=== PATIENT | female | born 1985 | race African-American/Black ===

== ENCOUNTER 2018-02-22 10:18 | Inpatient (IN) | payer MEDICARE, OTHER ==
[2018-02-22] MEDS: morphine 4 MG/ML VIAL IV (11:00)
[2018-02-22 11:03] LABS: ADD MAN DIFF? NO
[2018-02-22 11:06] LABS: WHITE BLOOD COUNT 5.6 10^3/ul (4.8-10.8)
[2018-02-22 11:06] LABS: ABNORMAL IP MESSAGE 1; BASOPHILS % 0.2 % (0.0-2.0); EOSINOPHILS % 0.7 % (0.0-7.0); HEMATOCRIT 34.5 % (37.0-47.0); HEMOGLOBIN 9.8 g/dl (12.0-16.0); LYMPHOCYTES # 1.3 10^3/ul (0.8-2.9); LYMPHOCYTES % 23.2 % (15.0-51.0); MEAN CORPUSCULAR HEMOGLOBIN 20.8 pg (29.0-33.0); MEAN CORPUSCULAR HGB CONC 28.4 g/dl (32.0-37.0); MEAN CORPUSCULAR VOLUME 73.2 fl (82.0-101.0); MEAN PLATELET VOLUME 11.5 fl (7.4-10.4); MONOCYTE # 0.6 10^3/ul (0.3-0.9); MONOCYTES % 10.5 % (0.0-11.0); NEUTROPHIL # 3.6 10^3/ul (1.6-7.5); NEUTROPHILS % 64.9 % (39.0-77.0); PLATELET COUNT 274 10^3/UL (140-415); RED BLOOD COUNT 4.71 10^6/ul (4.20-5.40); RED CELL DISTRIBUTION WIDTH 18.5 % (11.5-14.5)
[2018-02-22 11:12] LABS: POSITIVE DIFF @See below
[2018-02-22 11:28] LABS: ANION GAP 9 (5-13); BLOOD UREA NITROGEN 12 mg/dl (7-20); CALCIUM 7.4 mg/dl (8.4-10.2); CARBON DIOXIDE 26 mmol/L (21-31); CHLORIDE 101 mmol/L (97-110); CREATININE 0.65 mg/dl (0.44-1.00); Estimated GFR > 60 mL/min (>60); GLUCOSE 204 mg/dl (70-220); POTASSIUM 3.8 mmol/L (3.5-5.1); SODIUM 136 mmol/L (135-144)
[2018-02-22 11:40] LABS: TROPONIN-I < 0.012 ng/ml (0.000-0.120)
[2018-02-22] MEDS: ACETAMINOPHEN 500 MG TAB PO (12:00)
[2018-02-22] MEDS: LORAZEPAM 0.5 MG TAB PO (12:00)
[2018-02-22] MEDS ORDERED: NACL 0.9% 3 ML SYG IV (12:30)
[2018-02-22] MEDS ORDERED: ONDANSETRON 4 MG INJ IV (12:30)
[2018-02-22] MEDS ORDERED: GLUCAGON 1 MG INJ IM (12:30)
[2018-02-22] MEDS ORDERED: DEXTROSE 50% 50 ML SYRINGE IV ×2 (12:30)
[2018-02-22] MEDS ORDERED: GLUCOSE GEL 15 GRAM TUBE BUCCAL (12:30)
[2018-02-22] MEDS ORDERED: ACETAMINOPHEN 325 MG TAB PO (12:30)
[2018-02-22] MEDS ORDERED: GLUCOSE GEL 15 GRAM TUBE PO ×2 (12:30)
[2018-02-22] MEDS: morphine 2 MG INJ IV ×3 (13:34→23:11)
[2018-02-22] MEDS ORDERED: HEPARIN 5,000 UNIT/0.5 ML VIAL ×2 (14:00→22:22)
[2018-02-22] MEDS: GABAPENTIN 100 MG CAP PO ×2 (14:05→20:51)
[2018-02-22] MEDS: SUCRALFATE (100 MG/ML) 10ML CUP PO ×3 (14:05→20:51)
[2018-02-22] MEDS: SOD CHLORIDE 0.9% 1,000 ML IV (14:05)
[2018-02-22] MEDS: ASPIRIN 325 MG TAB PO (14:05)
[2018-02-22] MEDS: HEPARIN 5,000 UNIT/1 ML VIAL SC ×2 (14:08→23:24)
[2018-02-22 17:20] LABS: CREATINE KINASE 137 IU/L (23-200)
[2018-02-22] MEDS: HYDROCODONE/APAP (5/325) TAB PO (17:25)
[2018-02-22 17:33] LABS: CK INDEX 0.2; CK-MB 0.25 ng/ml (0.0-2.4); TROPONIN-I < 0.012 ng/ml (0.000-0.120)
[2018-02-22] MEDS: INSULIN ASPART [NOVOLOG] 3 ML PEN SC ×3 (17:55→20:54)
[2018-02-22] MEDS: INSULIN GLARGINE [LANTus] (100 UNITS/ML) SYG SC (20:49)
[2018-02-22] MEDS: ATORVASTATIN 80 MG TAB PO (20:51)
[2018-02-22] MEDS: QUETIAPINE 100 MG TAB PO (20:51)
[2018-02-22] MEDS: traZODone 50 MG TAB PO (20:51)
[2018-02-22 22:52] LABS: CREATINE KINASE 134 IU/L (23-200)
[2018-02-22 23:02] LABS: CK INDEX 0.2; CK-MB 0.24 ng/ml (0.0-2.4)
[2018-02-22 23:06] LABS: TROPONIN-I < 0.012 ng/ml (0.000-0.120)
[2018-02-22] MEDS: HALOPERIDOL 5 MG TAB PO (23:20)
[2018-02-22] MEDS: FAMOTIDINE 20 MG INJ IV (23:20)
[2018-02-23] MEDS: ACCU-CHEK XX (02:00)
[2018-02-23] MEDS: morphine 2 MG INJ IV ×2 (03:29→07:42)
[2018-02-23 05:46] LABS: ADD MAN DIFF? NO
[2018-02-23 06:21] LABS: ALANINE AMINOTRANSFERASE 27 IU/L (13-69); ALBUMIN 3.5 g/dl (3.3-4.9); ALBUMIN/GLOBULIN RATIO 1.29; ALKALINE PHOSPHATASE 121 IU/L (42-121); ANION GAP 10 (5-13); ASPARTATE AMINO TRANSFERASE 19 IU/L (15-46); BLOOD UREA NITROGEN 13 mg/dl (7-20); CALCIUM 6.7 mg/dl (8.4-10.2); CARBON DIOXIDE 25 mmol/L (21-31); CHLORIDE 103 mmol/L (97-110); CREATININE 0.65 mg/dl (0.44-1.00); Estimated GFR > 60 mL/min (>60); GLUCOSE 98 mg/dl (70-220); MAGNESIUM 1.6 mg/dl (1.7-2.5); SODIUM 138 mmol/L (135-144); TOTAL PROTEIN 6.2 g/dl (6.1-8.1)
[2018-02-23 06:46] LABS: HEMOGLOBIN A1C 7.6 % (0-5.9)
[2018-02-23 07:02] LABS: WHITE BLOOD COUNT 4.7 10^3/ul (4.8-10.8)
[2018-02-23 07:02] LABS: ABNORMAL IP MESSAGE 1; BASOPHILS % 0.4 % (0.0-2.0); EOSINOPHILS # 0.1 10^3/ul (0.0-0.5); EOSINOPHILS % 1.1 % (0.0-7.0); HEMATOCRIT 30.8 % (37.0-47.0); HEMOGLOBIN 9.1 g/dl (12.0-16.0); LYMPHOCYTES # 1.6 10^3/ul (0.8-2.9); LYMPHOCYTES % 33.3 % (15.0-51.0); MEAN CORPUSCULAR HGB CONC 29.5 g/dl (32.0-37.0); MEAN CORPUSCULAR VOLUME 71.1 fl (82.0-101.0); MONOCYTE # 0.8 10^3/ul (0.3-0.9); NEUTROPHIL # 2.3 10^3/ul (1.6-7.5); NEUTROPHILS % 48.8 % (39.0-77.0); PLATELET COUNT 187 10^3/UL (140-415); RED BLOOD COUNT 4.33 10^6/ul (4.20-5.40); RED CELL DISTRIBUTION WIDTH 18.9 % (11.5-14.5)
[2018-02-23 07:04] LABS: POSITIVE DIFF @See below
[2018-02-23] MEDS ORDERED: HEPARIN 5,000 UNIT/0.5 ML VIAL ×3 (07:33→21:39)
[2018-02-23] MEDS: HEPARIN 5,000 UNIT/1 ML VIAL SC ×3 (07:36→21:57)
[2018-02-23] MEDS: INSULIN ASPART [NOVOLOG] 3 ML PEN SC ×7 (07:41→21:00)
[2018-02-23] MEDS: FAMOTIDINE 20 MG INJ IV ×2 (08:04→21:00)
[2018-02-23] MEDS: SUCRALFATE (100 MG/ML) 10ML CUP PO ×4 (08:04→21:00)
[2018-02-23] MEDS: GABAPENTIN 100 MG CAP PO ×3 (08:04→21:55)
[2018-02-23] MEDS: ASPIRIN 81 MG TAB PO (08:05)
[2018-02-23] MEDS: DIPHENHYDRAMINE 50 MG INJ IV ×2 (09:23→10:30)
[2018-02-23] MEDS: MAGNESIUM OXIDE 400 MG TAB PO (09:23)
[2018-02-23] MEDS: HYDROmorphONE 0.5 MG/0.5 ML SYG IV ×3 (10:57→19:07)
[2018-02-23] MEDS: POLYETHYLENE GLYCOL 17 GM PACKET PO (11:00)
[2018-02-23] MEDS: traZODone 50 MG TAB PO (21:54)
[2018-02-23] MEDS: QUETIAPINE 100 MG TAB PO (21:55)
[2018-02-23] MEDS: HALOPERIDOL 5 MG TAB PO (21:55)
[2018-02-23] MEDS: ATORVASTATIN 80 MG TAB PO (21:55)
[2018-02-23] MEDS: INSULIN GLARGINE [LANTus] (100 UNITS/ML) SYG SC (22:00)
[2018-02-24] MEDS: HYDROmorphONE 0.5 MG/0.5 ML SYG IV ×6 (00:05→22:40)
[2018-02-24] MEDS: ACCU-CHEK XX (02:42)
[2018-02-24] MEDS ORDERED: HEPARIN 5,000 UNIT/0.5 ML VIAL ×3 (05:50→21:16)
[2018-02-24] MEDS: HEPARIN 5,000 UNIT/1 ML VIAL SC ×3 (05:55→22:47)
[2018-02-24 06:08] LABS: ADD MAN DIFF? NO
[2018-02-24 06:09] LABS: WHITE BLOOD COUNT 5.1 10^3/ul (4.8-10.8)
[2018-02-24 06:09] LABS: ABNORMAL IP MESSAGE 1; BASOPHILS % 0.4 % (0.0-2.0); EOSINOPHILS # 0.1 10^3/ul (0.0-0.5); HEMATOCRIT 31.6 % (37.0-47.0); HEMOGLOBIN 9.4 g/dl (12.0-16.0); LYMPHOCYTES # 1.3 10^3/ul (0.8-2.9); MEAN CORPUSCULAR HEMOGLOBIN 20.9 pg (29.0-33.0); MEAN CORPUSCULAR HGB CONC 29.7 g/dl (32.0-37.0); MEAN CORPUSCULAR VOLUME 70.4 fl (82.0-101.0); MEAN PLATELET VOLUME 10.8 fl (7.4-10.4); MONOCYTE # 0.8 10^3/ul (0.3-0.9); MONOCYTES % 16.2 % (0.0-11.0); NEUTROPHIL # 2.9 10^3/ul (1.6-7.5); NEUTROPHILS % 56.2 % (39.0-77.0); PLATELET COUNT 223 10^3/UL (140-415); RED BLOOD COUNT 4.49 10^6/ul (4.20-5.40); RED CELL DISTRIBUTION WIDTH 18.6 % (11.5-14.5)
[2018-02-24 06:13] LABS: POSITIVE DIFF @See below
[2018-02-24 06:37] LABS: ALBUMIN 3.6 g/dl (3.3-4.9); ANION GAP 7 (5-13); BLOOD UREA NITROGEN 13 mg/dl (7-20); CARBON DIOXIDE 26 mmol/L (21-31); CHLORIDE 104 mmol/L (97-110); CREATININE 0.61 mg/dl (0.44-1.00); GLUCOSE 109 mg/dl (70-220); MAGNESIUM 1.8 mg/dl (1.7-2.5); PHOSPHORUS 5.7 mg/dl (2.5-4.9); POTASSIUM 4.1 mmol/L (3.5-5.1); SODIUM 137 mmol/L (135-144)
[2018-02-24] MEDS: INSULIN ASPART [NOVOLOG] 3 ML PEN SC ×7 (08:00→20:48)
[2018-02-24] MEDS: ASPIRIN 81 MG TAB PO (08:30)
[2018-02-24] MEDS: GABAPENTIN 100 MG CAP PO ×2 (08:30→12:32)
[2018-02-24] MEDS: POLYETHYLENE GLYCOL 17 GM PACKET PO (08:31)
[2018-02-24] MEDS: SUCRALFATE (100 MG/ML) 10ML CUP PO ×4 (08:31→20:42)
[2018-02-24] MEDS: FAMOTIDINE 20 MG INJ IV ×2 (08:31→20:42)
[2018-02-24] MEDS: HYDROCODONE/APAP (5/325) TAB PO (13:17)
[2018-02-24] MEDS: ATORVASTATIN 80 MG TAB PO (20:42)
[2018-02-24] MEDS: GABAPENTIN 300 MG CAP PO (20:43)
[2018-02-24] MEDS: HALOPERIDOL 5 MG TAB PO (20:43)
[2018-02-24] MEDS: traZODone 50 MG TAB PO (20:43)
[2018-02-24] MEDS: DIPHENHYDRAMINE 50 MG INJ IV (20:43)
[2018-02-24] MEDS: QUETIAPINE 100 MG TAB PO (20:43)
[2018-02-24] MEDS: INSULIN GLARGINE [LANTus] (100 UNITS/ML) SYG SC (20:51)
[2018-02-25] MEDS: ACCU-CHEK XX (02:43)
[2018-02-25] MEDS: HYDROmorphONE 0.5 MG/0.5 ML SYG IV ×5 (02:44→21:32)
[2018-02-25] MEDS: DIPHENHYDRAMINE 50 MG INJ IV ×4 (02:44→18:49)
[2018-02-25] MEDS ORDERED: HEPARIN 5,000 UNIT/0.5 ML VIAL ×3 (05:46→21:20)
[2018-02-25] MEDS: HEPARIN 5,000 UNIT/1 ML VIAL SC ×3 (06:52→21:40)
[2018-02-25] MEDS: INSULIN ASPART [NOVOLOG] 3 ML PEN SC ×7 (08:00→21:00)
[2018-02-25] MEDS: SUCRALFATE (100 MG/ML) 10ML CUP PO ×4 (08:28→21:28)
[2018-02-25] MEDS: ASPIRIN 81 MG TAB PO (08:28)
[2018-02-25] MEDS: GABAPENTIN 300 MG CAP PO ×3 (08:28→21:28)
[2018-02-25] MEDS: FAMOTIDINE 20 MG INJ IV ×2 (08:28→21:28)
[2018-02-25] MEDS: POLYETHYLENE GLYCOL 17 GM PACKET PO (08:28)
[2018-02-25 09:10] LABS: ADD MAN DIFF? NO
[2018-02-25 09:13] LABS: ABNORMAL IP MESSAGE 1; BASOPHILS % 0.4 % (0.0-2.0); EOSINOPHILS # 0.1 10^3/ul (0.0-0.5); EOSINOPHILS % 1.5 % (0.0-7.0); HEMATOCRIT 32.4 % (37.0-47.0); HEMOGLOBIN 9.4 g/dl (12.0-16.0); LYMPHOCYTES # 1.5 10^3/ul (0.8-2.9); LYMPHOCYTES % 29.2 % (15.0-51.0); MEAN CORPUSCULAR VOLUME 72.3 fl (82.0-101.0); MONOCYTE # 0.9 10^3/ul (0.3-0.9); MONOCYTES % 16.9 % (0.0-11.0); NEUTROPHIL # 2.7 10^3/ul (1.6-7.5); NEUTROPHILS % 51.8 % (39.0-77.0); PLATELET COUNT 240 10^3/UL (140-415); RED BLOOD COUNT 4.48 10^6/ul (4.20-5.40); RED CELL DISTRIBUTION WIDTH 18.6 % (11.5-14.5)
[2018-02-25 09:13] LABS: WHITE BLOOD COUNT 5.2 10^3/ul (4.8-10.8)
[2018-02-25 09:19] LABS: POSITIVE DIFF @See below
[2018-02-25 09:34] LABS: CHOL/HDL RATIO 4.4 RATIO; HDL CHOLESTEROL 43 mg/dl (34-82); LDL CHOLESTEROL,CALCULATED 121 mg/dl; TRIGLYCERIDES 131 mg/dl (0-149)
[2018-02-25 09:34] LABS: CHOLESTEROL 190 mg/dl (100-200)
[2018-02-25 09:37] LABS: ALBUMIN 3.7 g/dl (3.3-4.9); ANION GAP 8 (5-13); BLOOD UREA NITROGEN 14 mg/dl (7-20); CALCIUM 7.6 mg/dl (8.4-10.2); CARBON DIOXIDE 27 mmol/L (21-31); CHLORIDE 102 mmol/L (97-110); GLUCOSE 109 mg/dl (70-220); MAGNESIUM 1.8 mg/dl (1.7-2.5); PHOSPHORUS 5.5 mg/dl (2.5-4.9); SODIUM 137 mmol/L (135-144)
[2018-02-25 10:10] LABS: POTASSIUM 4.1 mmol/L (3.5-5.1)
[2018-02-25] MEDS: REGADENOSON 0.4 MG/5 ML SYG (13:07)
[2018-02-25 14:40] LABS: IRON 44 ug/dl (35-150)
[2018-02-25 14:49] LABS: % IRON SATURATION 13 % SAT (22-52); TOTAL IRON BINDING CAPACITY 336 ug/dl (241-421)
[2018-02-25 15:15] LABS: FERRITIN 9.9 ng/ml (6.2-137.0)
[2018-02-25] MEDS: QUETIAPINE 100 MG TAB PO (21:28)
[2018-02-25] MEDS: traZODone 50 MG TAB PO (21:28)
[2018-02-25] MEDS: ATORVASTATIN 80 MG TAB PO (21:28)
[2018-02-25] MEDS: HALOPERIDOL 5 MG TAB PO (21:29)
[2018-02-25] MEDS: INSULIN GLARGINE [LANTus] (100 UNITS/ML) SYG SC (21:40)
[2018-02-26] MEDS: ACCU-CHEK XX (01:50)
[2018-02-26] MEDS: DIPHENHYDRAMINE 50 MG INJ IV ×4 (02:29→21:17)
[2018-02-26] MEDS: HYDROmorphONE 0.5 MG/0.5 ML SYG IV ×4 (02:29→21:16)
[2018-02-26 05:51] LABS: ADD MAN DIFF? NO
[2018-02-26] MEDS ORDERED: HEPARIN 5,000 UNIT/0.5 ML VIAL ×3 (05:52→22:30)
[2018-02-26 06:04] LABS: ABNORMAL IP MESSAGE 1; BASOPHILS % 0.2 % (0.0-2.0); EOSINOPHILS # 0.1 10^3/ul (0.0-0.5); EOSINOPHILS % 1.4 % (0.0-7.0); HEMATOCRIT 33.2 % (37.0-47.0); HEMOGLOBIN 9.6 g/dl (12.0-16.0); LYMPHOCYTES # 1.6 10^3/ul (0.8-2.9); LYMPHOCYTES % 26.3 % (15.0-51.0); MEAN CORPUSCULAR HEMOGLOBIN 20.9 pg (29.0-33.0); MEAN CORPUSCULAR HGB CONC 28.9 g/dl (32.0-37.0); MEAN CORPUSCULAR VOLUME 72.3 fl (82.0-101.0); MONOCYTE # 0.9 10^3/ul (0.3-0.9); MONOCYTES % 14.6 % (0.0-11.0); NEUTROPHIL # 3.6 10^3/ul (1.6-7.5); PLATELET COUNT 253 10^3/UL (140-415); RED BLOOD COUNT 4.59 10^6/ul (4.20-5.40)
[2018-02-26 06:04] LABS: WHITE BLOOD COUNT 6.2 10^3/ul (4.8-10.8)
[2018-02-26] MEDS: HEPARIN 5,000 UNIT/1 ML VIAL SC ×3 (06:14→22:35)
[2018-02-26 06:19] LABS: ALBUMIN 3.9 g/dl (3.3-4.9); ANION GAP 11 (5-13); BLOOD UREA NITROGEN 16 mg/dl (7-20); CALCIUM 7.8 mg/dl (8.4-10.2); CARBON DIOXIDE 25 mmol/L (21-31); CHLORIDE 101 mmol/L (97-110); CREATININE 0.64 mg/dl (0.44-1.00); GLUCOSE 162 mg/dl (70-220); MAGNESIUM 1.7 mg/dl (1.7-2.5); PHOSPHORUS 5.5 mg/dl (2.5-4.9); POTASSIUM 4.2 mmol/L (3.5-5.1); SODIUM 137 mmol/L (135-144)
[2018-02-26 06:49] LABS: POSITIVE DIFF @See below
[2018-02-26] MEDS: INSULIN ASPART [NOVOLOG] 3 ML PEN SC ×7 (08:00→20:39)
[2018-02-26] MEDS: FAMOTIDINE 20 MG INJ IV ×2 (08:42→20:37)
[2018-02-26] MEDS: SUCRALFATE (100 MG/ML) 10ML CUP PO ×4 (09:10→20:38)
[2018-02-26] MEDS: ASPIRIN 81 MG TAB PO (09:10)
[2018-02-26] MEDS: POLYETHYLENE GLYCOL 17 GM PACKET PO (09:10)
[2018-02-26] MEDS: GABAPENTIN 300 MG CAP PO ×3 (09:10→20:37)
[2018-02-26 15:55] LABS: OCCULT BLOOD STOOL NEGATIVE (NEGATIVE)
[2018-02-26] MEDS: HYDROCORTISONE 1% 28 GM CR TOP ×2 (18:50→20:39)
[2018-02-26] MEDS: ATORVASTATIN 80 MG TAB PO (20:37)
[2018-02-26] MEDS: HALOPERIDOL 5 MG TAB PO (20:38)
[2018-02-26] MEDS: QUETIAPINE 100 MG TAB PO (20:38)
[2018-02-26] MEDS: traZODone 50 MG TAB PO (20:38)
[2018-02-26] MEDS: INSULIN GLARGINE [LANTus] (100 UNITS/ML) SYG SC (20:43)
[2018-02-27] MEDS: DIPHENHYDRAMINE 50 MG INJ IV ×4 (04:41→23:02)
[2018-02-27] MEDS: HYDROmorphONE 0.5 MG/0.5 ML SYG IV ×4 (04:43→22:58)
[2018-02-27] MEDS ORDERED: HEPARIN 5,000 UNIT/0.5 ML VIAL ×3 (06:28→21:42)
[2018-02-27] MEDS: HEPARIN 5,000 UNIT/1 ML VIAL SC ×3 (06:32→22:23)
[2018-02-27] MEDS: INSULIN ASPART [NOVOLOG] 3 ML PEN SC ×7 (08:18→20:20)
[2018-02-27] MEDS: GABAPENTIN 300 MG CAP PO ×3 (08:19→20:24)
[2018-02-27] MEDS: FAMOTIDINE 20 MG INJ IV (08:19)
[2018-02-27] MEDS: ASPIRIN 81 MG TAB PO (08:20)
[2018-02-27] MEDS: SUCRALFATE (100 MG/ML) 10ML CUP PO ×4 (08:22→20:35)
[2018-02-27] MEDS: POLYETHYLENE GLYCOL 17 GM PACKET PO (08:22)
[2018-02-27] MEDS: HYDROCORTISONE 1% 28 GM CR TOP ×3 (08:22→20:25)
[2018-02-27] MEDS ORDERED: PANTOPRAZOLE (EC) 40 MG TAB PO (16:50)
[2018-02-27] MEDS: PANTOPRAZOLE (EC) 40 MG TAB PO (16:56)
[2018-02-27] MEDS: INSULIN GLARGINE [LANTus] (100 UNITS/ML) SYG SC (20:20)
[2018-02-27] MEDS: HYDROCODONE/APAP (5/325) TAB PO (20:23)
[2018-02-27] MEDS: HALOPERIDOL 5 MG TAB PO (20:24)
[2018-02-27] MEDS: ATORVASTATIN 80 MG TAB PO (20:24)
[2018-02-27] MEDS: traZODone 50 MG TAB PO (20:24)
[2018-02-27] MEDS: QUETIAPINE 100 MG TAB PO (20:24)
[2018-02-28] MEDS: HYDROCODONE/APAP (5/325) TAB PO ×2 (03:00→09:43)
[2018-02-28] MEDS ORDERED: HEPARIN 5,000 UNIT/0.5 ML VIAL ×2 (04:46→13:51)
[2018-02-28] MEDS: PANTOPRAZOLE (EC) 40 MG TAB PO ×2 (05:42→17:15)
[2018-02-28] MEDS: HEPARIN 5,000 UNIT/1 ML VIAL SC ×2 (05:43→13:54)
[2018-02-28] MEDS: HYDROmorphONE 0.5 MG/0.5 ML SYG IV ×3 (05:45→17:13)
[2018-02-28] MEDS: DIPHENHYDRAMINE 50 MG INJ IV ×3 (05:48→17:12)
[2018-02-28] MEDS: INSULIN ASPART [NOVOLOG] 3 ML PEN SC ×6 (08:00→17:17)
[2018-02-28] MEDS: SUCRALFATE (100 MG/ML) 10ML CUP PO ×3 (08:10→17:15)
[2018-02-28] MEDS: ASPIRIN 81 MG TAB PO (08:13)
[2018-02-28] MEDS: GABAPENTIN 300 MG CAP PO ×2 (08:13→13:53)
[2018-02-28] MEDS: HYDROCORTISONE 1% 28 GM CR TOP ×2 (08:14→13:53)
[2018-02-28] MEDS: POLYETHYLENE GLYCOL 17 GM PACKET PO (08:14)
== END 2018-02-28 18:15 | disposition home or self-care (01) | DRG 313 ==
LOC: E/R 10:18 → PP2 02-27 20:52 → 6WM 12:08
PROC: C22G1ZZ Tomographic (Tomo) Nuclear Medicine Imaging of Myocardium using Technetium 99m (Tc-99m) (ICD-10-PCS; principal; 2018-02-25)
DX: R07.89 Other chest pain (principal); Z68.43 Body mass index [BMI] 50.0-59.9, adult; E66.9 Obesity, unspecified; E11.9 Type 2 diabetes mellitus without complications; I10 Essential (primary) hypertension; G62.9 Polyneuropathy, unspecified; F20.9 Schizophrenia, unspecified; F31.9 Bipolar disorder, unspecified; F17.200 Nicotine dependence, unspecified, uncomplicated; D64.9 Anemia, unspecified; R10.13 Epigastric pain
CPT/HCPCS: 36415; 71045; 78452; 80048; 80053; 80061; 80069; 81025; 82270; 82550; 82553; 82728; 82962; 83036; 83540; 83735; 84484; 85025; 90686; 93005; 93017; 93306; 93970; 96374; 99285-25; G0378

== ENCOUNTER 2018-03-06 20:50 | Emergency (ER) | payer MEDICARE, OTHER ==
[2018-03-06] MEDS: ONDANSETRON 4 MG INJ IV (21:33)
[2018-03-06] MEDS: SOD CHLORIDE 0.9% 1,000 ML IV (21:33)
[2018-03-06 21:42] LABS: ADD MAN DIFF? NO
[2018-03-06 21:45] LABS: ABNORMAL IP MESSAGE 1; BASOPHILS % 0.3 % (0.0-2.0); EOSINOPHILS % 0.4 % (0.0-7.0); HEMATOCRIT 35.3 % (37.0-47.0); HEMOGLOBIN 10.4 g/dl (12.0-16.0); LYMPHOCYTES # 1.3 10^3/ul (0.8-2.9); LYMPHOCYTES % 17.4 % (15.0-51.0); MEAN CORPUSCULAR HEMOGLOBIN 21.1 pg (29.0-33.0); MEAN CORPUSCULAR HGB CONC 29.5 g/dl (32.0-37.0); MEAN CORPUSCULAR VOLUME 71.7 fl (82.0-101.0); MEAN PLATELET VOLUME 10.5 fl (7.4-10.4); MONOCYTE # 0.8 10^3/ul (0.3-0.9); MONOCYTES % 11.3 % (0.0-11.0); NEUTROPHIL # 5.1 10^3/ul (1.6-7.5); PLATELET COUNT 262 10^3/UL (140-415); RED BLOOD COUNT 4.92 10^6/ul (4.20-5.40); RED CELL DISTRIBUTION WIDTH 18.9 % (11.5-14.5)
[2018-03-06 21:45] LABS: WHITE BLOOD COUNT 7.2 10^3/ul (4.8-10.8)
[2018-03-06 21:52] LABS: POSITIVE DIFF @See below
[2018-03-06] MEDS: ACETAMINOPHEN 500 MG TAB PO (21:53)
[2018-03-06] MEDS: LIDOCAINE/MYLANTA 40 ML BTL PO (21:57)
[2018-03-06] MEDS: BELLADONNA/PHENOBARBITAL TAB PO (21:57)
[2018-03-06 22:03] LABS: ADD UMIC YES; ALANINE AMINOTRANSFERASE 18 IU/L (13-69); ALBUMIN 4.3 g/dl (3.3-4.9); ALBUMIN/GLOBULIN RATIO 1.13; ALKALINE PHOSPHATASE 146 IU/L (42-121); ANION GAP 12 (5-13); ASPARTATE AMINO TRANSFERASE 30 IU/L (15-46); BILIRUBIN,INDIRECT 0.2 mg/dl (0-1.1); BILIRUBIN,TOTAL 0.2 mg/dl (0.2-1.3); BLOOD UREA NITROGEN 10 mg/dl (7-20); CALCIUM 7.3 mg/dl (8.4-10.2); CARBON DIOXIDE 23 mmol/L (21-31); CHLORIDE 103 mmol/L (97-110); CREATININE 0.65 mg/dl (0.44-1.00); Estimated GFR > 60 mL/min (>60); GLUCOSE 184 mg/dl (70-220); LIPASE 29 U/L (23-300); POTASSIUM 3.7 mmol/L (3.5-5.1); SODIUM 138 mmol/L (135-144); TOTAL PROTEIN 8.1 g/dl (6.1-8.1); UR ASCORBIC ACID NEGATIVE (NEGATIVE); UR BILIRUBIN (Dip) NEGATIVE (NEGATIVE); UR BLOOD (Dip) 1+ mg/dL (NEGATIVE); UR CLARITY SLIGHTLY CLOUDY (CLEAR); UR COLOR YELLOW (YELLOW); UR GLUCOSE (Dip) NEGATIVE (NEGATIVE); UR KETONES (Dip) TRACE mg/dL (NEGATIVE); UR LEUKOCYTE ESTERASE (Dip) NEGATIVE Leu/ul (NEGATIVE); UR MUCUS FEW /HPF (NONE SEEN); UR NITRITE (Dip) NEGATIVE (NEGATIVE); UR RBC 3 /HPF (0-5); UR SQUAMOUS EPITHELIAL CELL FEW /HPF (FEW); UR TOTAL PROTEIN (Dip) NEGATIVE (NEGATIVE); UR UROBILINOGEN (Dip) NEGATIVE (NEGATIVE); UR WBC 4 /HPF (0-5)
[2018-03-06] MEDS: SUCRALFATE 1 GM TAB PO (23:03)
[2018-03-06] MEDS: ONDANSETRON (ODT) 4 MG TAB ODT (23:03)
== END 2018-03-06 23:08 | disposition home or self-care (01) ==
LOC: FTE 20:50
DX: R10.9 Unspecified abdominal pain (principal); I10 Essential (primary) hypertension; J45.909 Unspecified asthma, uncomplicated; E11.9 Type 2 diabetes mellitus without complications; R11.10 Vomiting, unspecified; Z79.4 Long term (current) use of insulin; Z87.891 Personal history of nicotine dependence
CPT/HCPCS: 36415; 80053; 81001; 83690; 85025; 96374; 99284-25

== ENCOUNTER 2018-03-13 16:28 | Emergency (ER) | payer MEDICARE, OTHER | END 2018-03-13 17:00 | disposition home or self-care (01) | LOC: E/R 16:28 | DX: R07.9 Chest pain, unspecified (principal); I10 Essential (primary) hypertension; J45.909 Unspecified asthma, uncomplicated; F17.210 Nicotine dependence, cigarettes, uncomplicated; E11.9 Type 2 diabetes mellitus without complications; Z79.4 Long term (current) use of insulin | CPT/HCPCS: 99282 ==

== ENCOUNTER 2018-10-15 12:30 | Emergency (ER) | payer MEDICARE, MEDICAID, OTHER ==
[2018-10-15 13:23] LABS: OCCULT BLOOD STOOL NEGATIVE (NEGATIVE)
[2018-10-15 13:32] LABS: ADD MAN DIFF? NO
[2018-10-15 13:39] LABS: WHITE BLOOD COUNT 7.8 10^3/ul (4.8-10.8)
[2018-10-15 13:39] LABS: BASOPHILS % 0.1 % (0.0-2.0); EOSINOPHILS % 0.3 % (0.0-7.0); HEMATOCRIT 33.1 % (37.0-47.0); HEMOGLOBIN 10.2 g/dl (12.0-16.0); LYMPHOCYTES # 1.6 10^3/ul (0.8-2.9); LYMPHOCYTES % 19.8 % (15.0-51.0); MEAN CORPUSCULAR HEMOGLOBIN 22.9 pg (29.0-33.0); MEAN CORPUSCULAR HGB CONC 30.8 g/dl (32.0-37.0); MEAN CORPUSCULAR VOLUME 74.4 fl (82.0-101.0); MEAN PLATELET VOLUME 10.4 fl (7.4-10.4); MONOCYTE # 0.8 10^3/ul (0.3-0.9); MONOCYTES % 10.3 % (0.0-11.0); NEUTROPHIL # 5.4 10^3/ul (1.6-7.5); NEUTROPHILS % 68.9 % (39.0-77.0); PLATELET COUNT 224 10^3/UL (140-415); RED BLOOD COUNT 4.45 10^6/ul (4.20-5.40); RED CELL DISTRIBUTION WIDTH 16.1 % (11.5-14.5)
[2018-10-15] MEDS: DIPHENHYDRAMINE 50 MG INJ IV ×2 (13:47→19:15)
[2018-10-15 13:59] LABS: INR 0.93; PROTIME 12.6 Sec (11.9-14.9)
[2018-10-15 14:00] LABS: ANION GAP 9 (5-13); BLOOD UREA NITROGEN 10 mg/dl (7-20); CALCIUM 6.9 mg/dl (8.4-10.2); CARBON DIOXIDE 28 mmol/L (21-31); CHLORIDE 99 mmol/L (97-110); CREATININE 0.56 mg/dl (0.44-1.00); Estimated GFR > 60 mL/min (>60); GLUCOSE 242 mg/dl (70-220); PARTIAL THROMBOPLASTIN TIME 28.9 Sec (23.0-35.0); PHENYTOIN (DILANTIN) 13.7 ug/ml (10.0-20.0); POTASSIUM 4.1 mmol/L (3.5-5.1); SODIUM 136 mmol/L (135-144)
[2018-10-15 14:02] LABS: ETHANOL < 10.0 mg/dl (0-0)
[2018-10-15] MEDS: ACETAMINOPHEN 325 MG TAB PO (14:12)
[2018-10-15 14:23] LABS: AMPHETAMINE/METHAMPHETAMINE Negative (NEGATIVE); BARBITURATES Negative (NEGATIVE); BENZODIAZEPINES Negative (NEGATIVE); CANNABINOIDS Negative (NEGATIVE); COCAINE Negative (NEGATIVE); OPIATES Positive (NEGATIVE)
[2018-10-15] MEDS: LORAZEPAM 2 MG INJ IV (14:45)
[2018-10-15] MEDS: LEVETIRACETAM 500 MG TAB PO (15:16)
[2018-10-15] MEDS ORDERED: ONDANSETRON 4 MG INJ IV (16:00)
[2018-10-15] MEDS ORDERED: ACETAMINOPHEN 325 MG TAB PO (16:00)
[2018-10-15] MEDS: HYDROCODONE/APAP (5/325) TAB PO (19:03)
[2018-10-15 19:29] LABS: ALANINE AMINOTRANSFERASE 25 IU/L (13-69); ALBUMIN 3.7 g/dl (3.3-4.9); ALKALINE PHOSPHATASE 143 IU/L (42-121); ASPARTATE AMINO TRANSFERASE 17 IU/L (15-46); BILIRUBIN,INDIRECT 0.2 mg/dl (0-1.1); BILIRUBIN,TOTAL 0.2 mg/dl (0.2-1.3)
[2018-10-15 20:10] LABS: IONIZED CALCIUM 0.9 mmol/L (1.1-1.4)
[2018-10-16] MEDS: HYDROCODONE/APAP (5/325) TAB PO (05:50)
[2018-10-16] MEDS: DIPHENHYDRAMINE 50 MG CAP PO (06:39)
== END 2018-10-16 09:02 | disposition home or self-care (01) ==
LOC: E/R 10-16 09:02
DX: G40.909 Epilepsy, unspecified, not intractable, without status epilepticus (principal); G89.29 Other chronic pain; R45.851 Suicidal ideations; J45.909 Unspecified asthma, uncomplicated; E11.9 Type 2 diabetes mellitus without complications; E66.9 Obesity, unspecified; I10 Essential (primary) hypertension; Z86.73 Personal history of transient ischemic attack (TIA), and cerebral infarction without residual deficits; Z68.42 Body mass index [BMI] 45.0-49.9, adult
CPT/HCPCS: 36415; 70450; 72170; 73510; 80048; 80076; 80185; 80307; 81025; 82270; 82330; 82962; 85025; 85610; 85730; 93005; 96374; 96375; 96376; 99285-25